=== PATIENT | female | born 1960 | race Caucasian/White ===

== ENCOUNTER 2020-03-22 04:43 | Day surgery (SDC) | payer OTHER ==
[2020-03-21 15:16] VITALS: BMI 20.6
[2020-03-22] MEDS ORDERED: PROPOFOL 20 ML ONE (12:41)
[2020-03-22] MEDS ORDERED: MIDAZOLAM HCL 2 MG/2 ML SINGLE DOSE VIAL ONE ×3 (12:41→13:54)
[2020-03-22] MEDS ORDERED: BENZOIN/ALOE VERA/STORAX/TOLU 58 ML BOTTLE ONE (12:41)
[2020-03-22] MEDS ORDERED: LIDOCAINE HCL 1%, 10 MG/ML (20ML VIAL) ONE ×2 (12:41→12:47)
[2020-03-22] MEDS ORDERED: ceFAZolin SODIUM 1 GM VIAL ONE (13:07)
[2020-03-22] MEDS ORDERED: BUPIVACAINE HCL/PF 0.5% (5MG/ML) 10 ML VIAL IJ ONE ×2 (13:15)
[2020-03-22] MEDS ORDERED: LIDOCAINE HCL 1%, 10 MG/ML (20ML VIAL) INF ONE (13:15)
[2020-03-22 16:08] VITALS: TEMP 97.1
[2020-03-22 16:54] VITALS: BP 131/83; PULSE 66
[2020-03-22] MEDS ORDERED: ACETAMINOPHEN 325 MG TABLET (FP) PO PRN (16:54)
[2020-03-22] MEDS ORDERED: ONDANSETRON 4 MG/2 ML VIAL IVPUSH PRN (16:54)
[2020-03-22] MEDS ORDERED: oxyCODONE HCL 5 MG TABLET PO PRN (16:54)
[2020-03-22] MEDS ORDERED: LACTATED RINGERS SOLUTION 1,000 ML IV SCH (17:00)
== END 2020-03-22 16:56 | disposition home or self-care (01) ==
LOC: JASU-SURG 04:43
PROVIDERS: ATTEND Podiatrist Foot Surgery
PROC: 01BG0ZZ Excision of Tibial Nerve, Open Approach (ICD-10-PCS; 2020-03-22)
PROC: 0SRQ0JZ Replacement of Left Toe Phalangeal Joint with Synthetic Substitute, Open Approach (ICD-10-PCS; principal; 2020-03-22 13:00)
PROC: 0QBR0ZZ Excision of Left Toe Phalanx, Open Approach (ICD-10-PCS; 2020-03-22 13:00)
DX: M20.42 Other hammer toe(s) (acquired), left foot (principal); D36.10 Benign neoplasm of peripheral nerves and autonomic nervous system, unspecified; M21.622 Bunionette of left foot
CPT/HCPCS: 88304-TC; 88311-TC; 94760

== ENCOUNTER 2021-03-21 04:35 | Day surgery (SDC) | payer OTHER ==
[2021-03-19 14:32] VITALS: BMI 20.9
[2021-03-21] MEDS ORDERED: BENZOIN/ALOE VERA/STORAX/TOLU 58 ML BOTTLE ONE (07:41)
[2021-03-21] MEDS ORDERED: LIDOCAINE HCL 1%, 10 MG/ML (20ML VIAL) ONE (07:41)
[2021-03-21] MEDS ORDERED: BUPIVACAINE HCL/PF 0.5% (5MG/ML) 10 ML VIAL ONE (07:42)
[2021-03-21] MEDS ORDERED: ROPIVACAINE HCL 0.5% 30ML VIAL ONE (07:43)
[2021-03-21] MEDS ORDERED: DEXAMETHASONE SOD PHOSPHATE 10 MG/1 ML VIAL ONE (07:43)
[2021-03-21] MEDS ORDERED: MIDAZOLAM HCL 2 MG/2 ML SINGLE DOSE VIAL ONE ×2 (07:44)
[2021-03-21] MEDS ORDERED: ceFAZolin SODIUM 1 GM VIAL IVPB ONE ×2 (08:09→12:10)
[2021-03-21] MEDS ORDERED: LIDOCAINE HCL 1%, 10 MG/ML (20ML VIAL) PNB ONE (08:20)
[2021-03-21] MEDS ORDERED: DESFLURANE GAS 240 ML BOTTLE IH ONE (09:49)
[2021-03-21] MEDS ORDERED: SEVOFLURANE 250 ML BTL ONE (09:49)
[2021-03-21] MEDS ORDERED: BUPIVACAINE HCL/PF 0.5% (5 MG/ML) 30 ML VIAL IJ ONE (12:12)
[2021-03-21] MEDS ORDERED: ceFAZolin SODIUM 1 GM VIAL ONE ×2 (12:26→12:30)
[2021-03-21] MEDS ORDERED: KETOROLAC TROMETHAMINE 30 MG/1 ML VIAL ONE (12:26)
[2021-03-21] MEDS ORDERED: DEXAMETHASONE SOD PHOSPHATE 4 MG/1 ML VIAL ONE (12:26)
[2021-03-21] MEDS ORDERED: BACITRACIN 15 GM TUBE TOPICAL OINTMENT TP ONE (12:43)
[2021-03-21] MEDS ORDERED: ACETAMINOPHEN INJECTION 100 ML IVPB ONE (13:09)
[2021-03-21] MEDS ORDERED: ACETAMINOPHEN 1000 MG/100 ML VIAL IVPB ONE (13:10)
[2021-03-21] MEDS ORDERED: oxyCODONE HCL 5 MG TABLET PO PRN (14:29)
[2021-03-21] MEDS ORDERED: ONDANSETRON 4 MG/2 ML VIAL IVPUSH PRN (14:29)
[2021-03-21] MEDS ORDERED: LACTATED RINGERS SOLUTION 1,000 ML IV SCH (14:30)
[2021-03-21] MEDS ORDERED: oxyCODONE HCL 5 MG TABLET ONE (15:07)
[2021-03-21 16:23] VITALS: BP 151/82; PULSE 83; TEMP 98.1
== END 2021-03-21 16:15 | disposition home or self-care (01) ==
LOC: JASU-SURG 04:35
PROVIDERS: ATTEND Podiatrist Foot Surgery
PROC: 0QSP04Z Reposition Left Metatarsal with Internal Fixation Device, Open Approach (ICD-10-PCS; principal; 2021-03-21 08:00)
PROC: 0L8W0ZZ Division of Left Foot Tendon, Open Approach (ICD-10-PCS; 2021-03-21 08:00)
DX: M20.42 Other hammer toe(s) (acquired), left foot (principal); M20.12 Hallux valgus (acquired), left foot; M21.612 Bunion of left foot
CPT/HCPCS: 73630-TC-LT; 88304-TC; 88311-TC; 94760; J0131; J1100